=== PATIENT | female | born 1975 | race Caucasian/White ===

== ENCOUNTER 2022-04-09 02:59 | Emergency (ER) | payer SELFPAY ==
[2022-04-09 03:10] VITALS: BP 131/74; PULSE 110; RESP 18; TEMP 36.6; O2SAT 98; BMI 31.8
--- NOTE | 2022-04-09 03:17 | DI.US.S_ITS ---
PROCEDURE: US PERIPH VENOUS LOW EXTREM LT INDICATIONS: PAIN, EDEMA TECHNIQUE: Real-time imaging, as well as color and pulse Doppler interrogation, were performed of the lower extremity deep veins from the inguinal ligament to the popliteal fossa. COMPARISON: None. FINDINGS: The common femoral, femoral and popliteal veins are normally compressible, and free of intraluminal thrombus. Color and pulse Doppler demonstrate normal phasic intraluminal flow. There is normal augmentation response to distal compression maneuver. IMPRESSION: No evidence of DVT in visualized left lower extremity veins. No discrepancies. Dictated by: Evan Boswell M.D. on 04/09/2022 at 8:08 Approved by: Evan Boswell M.D. on 04/09/2022 at 8:09
--- NOTE | 2022-04-09 03:22 | ED_ITS ---
HPI - Extremity Problem General Chief complaint: Extremity Problem,Nontraumatic Stated complaint: LEFT LEG SWELLING THIGH TO CALF Time Seen by Provider: 04/09/22 03:04 Source: patient Mode of arrival: Ambulatory Limitations: no limitations History of Present Illness HPI Narrative: Patient is a 46-year-old female who comes to emergency department today for swelling of her left leg and discomfort. She does have a history of heart failure. She has history of drug abuse. There has been no specific trauma. Patient does live in her car and has been spending quite a bit of time with her legs down. She is never had a blood clot in the past. Related Data Allergies Allergy/AdvReac Type Severity Reaction Status Date / Time haloperidol [From Haldol] Allergy Verified 04/09/22 03:10 methylphenidate Allergy Verified 04/09/22 03:10 [From Ritalin] prochlorperazine Allergy Verified 04/09/22 03:10 [From Compazine] Review of Systems Constitutional Constitutional: Reports system reviewed and no additional complaints, except as documented Cardiovascular Cardiovascular: Reports system reviewed and no additional complaints, except as documented Respiratory Respiratory: Reports system reviewed and no additional complaints, except as documented Musculoskeletal Musculoskeletal: Reports system reviewed and no additional complaints, except as documented Integumentary/Breasts Skin/Breast: Reports system reviewed and no additional complaints, except as d ocumented Hematologic/Lymphatic On Anticoagulants: No Patient History Medical History Drug abuse Social History Smoking Status: Current every day smoker Smoking Status: Current every day smoker tobacco type: cigarettes Substance Use Type: methamphetamine Exam Initial Vital Signs Initial Vital Signs: Vital Signs Temperature 97.8 F 04/09/22 03:10 Pulse Rate 110 H 04/09/22 03:10 Respiratory Rate 18 04/09/22 03:10 Blood Pressure 131/74 04/09/22 03:10 Pulse Oximetry 98 04/09/22 03:10 Oxygen Delivery Method 04/09/22 03:10 Const General: disheveled Resp Effort & Inspection: normal respiratory effort Auscultation: clear to auscultation bilaterally Cardio Rate: regular rate Rhythm: regular rhythm Skin Other: She does have some redness in her bilateral lower legs however more consistent with chronic swelling and venous stasis changes rather than cellulitis. Neuro General: patient alert, patient awake and moves all extremities Extrem Other: She does report tenderness to her left calf and along the posterior inside portion of her left thigh to palpation. She does have swelling to bilateral lower extremities. This is not pitting edema. And is equal bilateral. Course Orders Ordered: ED Orders 04/09/22 03:16 Consult to [employer] - [employer] Stat 04/09/22 03:17 US periph venous low extrem lt Stat Vital Signs Vital signs: Vital Signs - 8 hr 04/09/22 03:10 04/09/22 04:53 Temperature 97.8 F Pulse Rate 110 H 87 Respiratory Rate 18 18 Blood Pressure 131/74 130/71 Pulse Oximetry 98 94 Oxygen Delivery Method Room Air Room Air MDM - Extremity (Nontraumatic) Imaging Data US - DVT: Radiologist's Impression: No evidence of DVT Discharge Plan Departure Patient Disposition: Home Clinical Impression: Peripheral edema Instructions: DI for Peripheral Edema -- Bilateral Activity Restrictions/Additional Instructions: The ultrasound did not show any signs of a blood clot. Here exam is also not consistent with an infection. I do recommend that you try to keep your legs elevated as much as possible. You can take Tylenol or ibuprofen for any discomfort. Return to the emergency department for any new symptoms.
[2022-04-09 04:53] VITALS: BP 130/71; PULSE 87; RESP 18; O2SAT 94
[2022-04-09 05:18] VITALS: PULSE 93; O2SAT 92
[2022-04-09 05:30] VITALS: BP 107/55; PULSE 93; O2SAT 92
[2022-04-09 06:01] VITALS: BP 142/77; PULSE 79; RESP 16; O2SAT 100
== END 2022-04-09 06:02 | disposition home or self-care (01) ==
PROVIDERS: Emergency Provider Emergency Medicine
DX: R60.9 Edema, unspecified (principal); I50.9 Heart failure, unspecified
CPT/HCPCS: 93971; 99281; 99283